=== PATIENT | male | born 1945 | race Caucasian/White ===

== ENCOUNTER 2024-12-06 21:18 | Emergency (ER) | payer OTHER ==
[~2024-12-06] VITALS: Ht 167.6 cm; Wt 96.6 kg
[2024-12-06] MEDS ORDERED: IV NS 0.9% 250 ML IV ONE ×3 (21:43→22:34)
[2024-12-06] MEDS ORDERED: IOHEXOL-350 100 ML VIAL IV ONE ×3 (21:43→22:33)
[2024-12-06 21:50] LABS: PLATELET COUNT (AUTO) 185 K/uL (150-450); RED BLOOD CELL COUNT(AUTO) 3.95 MIL/uL (4.5-6.0); RED CELL DISTRIBUTION WIDTH 16.7 % (11.5-15.0); WHITE BLOOD COUNT (AUTO) 9.6 K/uL (4.3-11.0)
[2024-12-06 21:58] LABS: CALCIUM, SERUM 8.6 mg/dL (8.5-10.1); CREATININE 1.2 mg/dL (0.6-1.3); SODIUM SERUM 137.0 mmol/L (136-145); UREA NITROGEN, BLOOD 19.0 mg/dL (7-18)
[2024-12-06 22:03] LABS: ASPARTATE AMINOTRANSFERASE 18.0 U/L (15-37); INR 1.43 (0.91-1.10); TOTAL PROTEIN, SERUM 6.2 g/dL (6.4-8.2)
[2024-12-06] MEDS ORDERED: CT SWABBABLE VALVE TRANS SET 1 EA INFUS.SET MC ONE (22:33)
[2024-12-06] MEDS: dexaMETHasone SOD PHOSPHATE 10 MG/ML VIAL IV ONE (23:15)
[2024-12-06 23:22] VITALS: BP 158/81; TEMP 98.6; O2SAT 99
[2024-12-06] MEDS ORDERED: LEVETIRACETAM (500MG) 500 MG/5 ML VIAL IV ONE ×2 (23:23→23:25)
[2024-12-06] MEDS ORDERED: dexaMETHasone SOD PHOSPHATE 4 MG/ML VIAL ONE (23:24)
[2024-12-06] MEDS: LEVETIRACETAM (500MG) 1,000 MG in IV NS 0.9% 90 ML IV SCH (23:30)
== END 2024-12-07 00:39 | disposition short-term general hospital (02) ==
LOC: ER 21:21
DX: G93.9 Disorder of brain, unspecified (principal); R53.1 Weakness; D64.9 Anemia, unspecified; I11.9 Hypertensive heart disease without heart failure; I48.91 Unspecified atrial fibrillation; I63.9 Cerebral infarction, unspecified; Z79.01 Long term (current) use of anticoagulants; Z20.822 Contact with and (suspected) exposure to COVID-19
CPT/HCPCS: 99291; 70498; 96374; 96365; 87426; 93005; 70496; 85025; 80048; 80076; 36415; 85730; 82962; 70450; J1100; J7030 ×2; J7050 ×3; J1953 ×3; Q9967 ×3